=== PATIENT | female | born 1995 | race African-American/Black ===

== ENCOUNTER 2017-05-01 02:23 | Emergency (ER) | payer MEDICAID ==
[~2017-05-01] VITALS: Ht 160 cm; Wt 100.0 kg
[~2017-05-01 02:23] MED LIST: AZIT250T; FAMO-135 PO; INSASP SQ; INSU100C3 SQ; INSU100V28 IJ; PRED-431 PO; [UNRECOGNIZED DRUG - CODE]
[2017-05-01] MEDS ORDERED: KETOROLAC 30MG/ML VIAL IM ONE (04:00)
[2017-05-01 05:23] VITALS: BP 128/79
== END 2017-05-01 05:26 | disposition home or self-care (01) ==
LOC: ER 02:23
DX: S50.11XA Contusion of right forearm, initial encounter (principal); R10.31 Right lower quadrant pain; E11.9 Type 2 diabetes mellitus without complications; Z79.4 Long term (current) use of insulin; Z90.49 Acquired absence of other specified parts of digestive tract; V43.62XA Car passenger injured in collision with other type car in traffic accident, initial encounter; Y93.89 Activity, other specified; Y92.488 Other paved roadways as the place of occurrence of the external cause
CPT/HCPCS: 73090; 81025; 96372; 99285; J1885; Z7610

== ENCOUNTER 2018-05-29 23:47 | Emergency (ER) | payer MEDICAID ==
[~2018-05-29] VITALS: Ht 160 cm; Wt 116.0 kg
[2018-05-30] MEDS ORDERED: IBUPROFEN 600MG TABLET PO ONE (00:45)
[2018-05-30] MEDS ORDERED: ASPIRIN 81MG TABLET PO ONE (00:45)
[2018-05-30 01:03] LABS: BASOPHILS % 0.9 % (0.0-2.0); HEMOGLOBIN. 12.6 g/dL (12.0-16.0); LYMPHOCYTES % 22.3 % (20.0-50.0); MEAN CORPUSCULAR HEMOGLOBIN 25.6 pg (28.0-32.0); MEAN CORPUSCULAR VOLUME 75.2 fL (81.0-99.0); MEAN PLATELET VOLUME 8.4 fl (7.4-10.4); NEUTROPHILS % 68.8 % (40.0-76.0); PLATELET 284 x1000/uL (130-400); RED BLOOD CELL COUNT 4.93 mill/uL (4.2-5.4); RED CELL DISTRIBUTION WIDTH 14.8 % (11.6-14.6)
[2018-05-30 01:05] LABS: CHLORIDE 104 mEq/L (98-107)
[2018-05-30 01:14] LABS: CREATINE KINASE 67 IU/L (26-192)
[2018-05-30] MEDS ORDERED: SODIUM CHLORIDE 0.9% 1,000 ML IV ONE (01:45)
[2018-05-30] MEDS ORDERED: IOHEXOL-350 100 ML BOTTLE ONE (03:53)
[2018-05-30 04:32] VITALS: BP 125/80
== END 2018-05-30 04:48 | disposition home or self-care (01) ==
LOC: ER 23:47
DX: R07.9 Chest pain, unspecified (principal); E11.9 Type 2 diabetes mellitus without complications; Z79.4 Long term (current) use of insulin; Z90.49 Acquired absence of other specified parts of digestive tract; Z79.899 Other long term (current) drug therapy
CPT/HCPCS: 36415; 71045; 71275; 80053; 81025; 82550; 82962; 84484; 85025; 85379; 93005; 99284; J7030; Q9967; Z7610